=== PATIENT | female | born 1975 | race Caucasian/White ===

== ENCOUNTER → 2020-03-30 17:17 | Outpatient (BNVA) | payer OTHER, SELFPAY | PROVIDERS: PCP Nurse Practitioner Family; Visit Provider Surgery | DX: Z20.828 Contact with and (suspected) exposure to other viral communicable diseases (principal); Z01.812 Encounter for preprocedural laboratory examination | CPT/HCPCS: 87635 ==

== ENCOUNTER → 2020-04-03 15:10 | Outpatient (BNVA) | payer OTHER, SELFPAY | PROVIDERS: PCP Nurse Practitioner Family; Visit Provider Nurse Practitioner Family | DX: S60.211A Contusion of right wrist, initial encounter (principal); W18.2XXA Fall in (into) shower or empty bathtub, initial encounter | CPT/HCPCS: 73110 ==

== ENCOUNTER 2020-04-05 07:28 | Day surgery (SDC) | payer OTHER, SELFPAY ==
[2020-04-03 13:13] VITALS: BMI 34.3
[2020-04-05 07:38] VITALS: BP 169/98; PULSE 69; RESP 18; TEMP 36.1; O2SAT 98
--- NOTE | 2020-04-05 07:51 | ANES.PREANE2 ---
Pre-Anesthetic Assessment Pre-Anesthetic Assessment: Height/Weight: Height 1.63 m Weight 90.718 kg Preop Diagnosis: GERD associated with obesity and screening colonoscopy Proposed Procedure: Operation Date: 04/05/20 08:30 Proposed Procedures p EGD/Colon 56388 K21.9(Not Applicable) - Baltazar Stacy MD s Colonoscopy 17994 Z12.11(Not Applicable) - Baltazar Stacy MD Familial anesthetic complications: takes longer to wake up Was Beta Juanita taken within 24 hours: Yes Last Intake: 01:01 Social: Social History: No alcohol and No tobacco Exam: Pre-Anes Outpt Exam: alert, oriented x 3 and clear to auscultation bilaterally Pulmonary: Pulmonary: None reported CV/HEM: CV/HEM: Arrythmia and HTN : : None reported Hepatic: Hepatic: None reported GI: GI: GERD Metabolic: Metabolic: DM (pre-diabetic ) and Thyroid (removed ) Musc/skel: Musc/skel: RA Neuropsych: Neuropsych: Anxiety Anesthetic Plan: ASA status: 2 Anesthesia: Anesthesia Evaluation and MAC PFSH Anesthesia PFSH: Family History Denies family history of Anesthesia complication Bleeding disorder Social History Smoking and tobacco status: never smoked Alcohol intake: never Adopted: No Caregiver/support person: Yes Lives independently: Yes Household members: spouse Housing: House Marital status: service: No Current occupational status: employed Pets and animals: No History of recent travel: No Sexually active: Yes Current gender identity: Female Jane/Jehovah'S Witness: Alevism Special jane needs: No Data Anesthesia Cardiac Studies: No Data to Display
[2020-04-05] MEDS: sodium chloride 0.9% 1,000 ML 30 ML IV (08:11)
[2020-04-05 08:18] LABS: OR HCG Qualitative Urine Negative (Negative)
--- NOTE | 2020-04-05 08:23 | W.PM.OPSFHP ---
Same Day Surgery H&P Indication for Procedure/HPI DATE OF PROCEDURE: April 05, 2020 CHIEF COMPLAINT/INDICATIONFOR SURGICAL PROCEDURE: Acid reflux and screening colonoscopy PREOP DIAGNOSIS: GERD associated with obesity and screening colonoscopy PLANNED PROCEDRUE: Operation Date: 04/05/20 08:30 Proposed Procedures p EGD/Colon 46811 K21.9(Not Applicable) - Baltazar Stacy MD s Colonoscopy 74726 Z12.11(Not Applicable) - Baltazar Stacy MD Patient comes today and continues to show enthusiasm for weight loss surgery with a current BMI of 35 and weighing 205 pounds. She reports history of GERD/acid reflux and she never had a colonoscopy before. Interim history 04/05/2020 Patient comes today for EGD and colonoscopy ROS All systems have been reviewed negative except as per the above Medications/Allergies* Home Medications Medication Instructions Recorded Confirmed Type amlodipine 5 mg tablet 5 mg PO DAILY 12/30/19 04/05/20 History levothyroxine 175 mcg capsule 175 mcg PO DAILY 12/30/19 04/05/20 History metoprolol tartrate 100 mg tablet 100 mg PO BID 12/30/19 04/05/20 History Allergies/Adverse Reactions Allergy/AdvReac Type Severity Reaction Status Date / Time Penicillins Allergy Severe ALGY-Swell Verified 04/05/20 08:30 Lip/Tongue/Throat Sulfa (Sulfonamide Allergy Severe ALGY-Swell Verified 04/05/20 08:30 Antibiotics) Lip/Tongue/Throat surgical tape Allergy ALGY-Rash Uncoded 04/05/20 08:30 Current Medications: Generic Name Dose Route Start Last Admin Trade Name Freq PRN Reason Stop Dose Admin Sodium Chloride 1,000 mls @ 30 mls/hr 04/05/20 07:45 04/05/20 08:11 Sodium Chloride 0.9% IV 30 mls/hr .Q24H TAHIRA Administration Pertinent History/Comorbid Conditions* Family History (Updated 12/30/19 @ 13:06 by Argelia Tena RN) Denies family history of Anesthesia complication Bleeding disorder Social History Smoking and tobacco status: never smoked Alcohol intake: never Adopted: No Caregiver/support person: Yes Lives independently: Yes Household members: spouse Housing: House Marital status: service: No Current occupational status: employed Pets and animals: No History of recent travel: No Sexually active: Yes Current gender identity: Female Jane/Pentecostal: Buddhist Special jane needs: No Pertinent Exam Findings alert, oriented x 3, clear to auscultation bilaterally, regular rate & rhythm and procedure specific exam findings (Abdominal examination nontender nondistended soft,obese) Recommendations Surgery/Procedure today (EGD and colonoscopy possible biopsy) Coding Level of Care Code Acute Biometrics Experimentalist for Tobin Whitaker
[2020-04-05 09:00] VITALS: BP 86/44; PULSE 66; RESP 16; TEMP 36.1; O2SAT 94
[2020-04-05 09:12] VITALS: BP 105/70; PULSE 63; RESP 18; O2SAT 96
[2020-04-05] MEDS: ondansetron 2 mg/ML SDV 2 mL 4 MG IVP (09:14)
--- NOTE | 2020-04-05 09:35 | ANE.PACU2 ---
Inpatient post-anesthesia follow up: Airway intact: Yes Vital signs: Temperature 97 F Pulse Rate 63 Respiratory Rate 18 Blood Pressure 105/70 Pulse Oximetry 96 Oxygen Delivery Me thod Room Air Oxygen Flow Rate Fraction of Inspir ed Oxygen Hydration adequate: Yes Nausea and vomiting: No Pain level: 1 Mental status: Baseline
== END 2020-04-05 09:39 | disposition home or self-care (01) ==
PROVIDERS: Anesthesiology; PCP Nurse Practitioner Family; Visit Provider Surgery
PROC: 0DJD8ZZ Inspection of Lower Intestinal Tract, Via Natural or Artificial Opening Endoscopic (ICD-10-PCS; CPT 45378; 2020-04-05 08:30)
PROC: 0DJ08ZZ Inspection of Upper Intestinal Tract, Via Natural or Artificial Opening Endoscopic (ICD-10-PCS; CPT 43235; 2020-04-05 08:30)
DX: Z12.11 Encounter for screening for malignant neoplasm of colon (principal); K21.9 Gastro-esophageal reflux disease without esophagitis; K31.7 Polyp of stomach and duodenum; K29.80 Duodenitis without bleeding; I10 Essential (primary) hypertension; E11.9 Type 2 diabetes mellitus without complications; M06.9 Rheumatoid arthritis, unspecified; F41.9 Anxiety disorder, unspecified
CPT/HCPCS: 12345; 43239; 84703; 88305; G0121; J2405; J2704; J3010; J7030

== ENCOUNTER → 2021-01-10 11:11 | Outpatient (BNVA) | payer OTHER, SELFPAY | PROVIDERS: PCP Nurse Practitioner Family; Visit Provider Registered Nurse Neonatal Intensive Care | DX: J02.9 Acute pharyngitis, unspecified (principal); J01.90 Acute sinusitis, unspecified; J32.9 Chronic sinusitis, unspecified | CPT/HCPCS: 87880 ==

== ENCOUNTER → 2021-05-08 14:03 | Outpatient (BNVA) | payer OTHER, SELFPAY | PROVIDERS: PCP Nurse Practitioner Family; Visit Provider Nurse Practitioner Family | DX: Z20.822 Contact with and (suspected) exposure to COVID-19 (principal) | CPT/HCPCS: 87635 ==

== ENCOUNTER 2021-06-01 11:44 | Outpatient (CLI) | payer OTHER, SELFPAY ==
[2021-06-01 13:11] LABS: Basophils # 0.1 10^3/uL (0.0-0.1); Eosinophils # 0.5 10^3/uL (0.0-0.8); Hematocrit 43.6 % (37.0-47.0); Hemoglobin 14.4 g/dL (11.5-15.3); Lymphocytes # 1.9 10^3/uL (0.8-4.8); Lymphocytes % 25.1 %; Mean Corpuscular Hemoglobin 29.1 pg (28.0-34.0); Mean Corpuscular Volume 88.3 fl (81-99); Mean Platelet Volume 9.4 fL (7.4-10.4); Monocytes # 0.6 10^3/uL (0.2-0.9); Monocytes % 7.5 %; Neutrophils # 4.44 10^3/uL (1.8-7.7); Neutrophils % 58.2 %; Nucleated Red Blood Cells % 0 %; Platelet Count 263 10^3/cmm (130-400); Red Blood Count 4.94 10^6/uL (4.1-5.3); White Blood Count 7.6 10^3/uL (4.0-10.0)
[2021-06-01 13:36] LABS: Follicle Stimulating Hormone 8.6 mIU/mL; Prolactin 5.09 ng/mL (4.8-23.3); Thyroid Stimulating Hormone 0.14 uIU/mL (0.27-4.20)
== END 2021-06-01 11:45 | disposition home or self-care (01) ==
PROVIDERS: PCP Nurse Practitioner Family; Visit Provider Obstetrics & Gynecology
DX: N92.0 Excessive and frequent menstruation with regular cycle (principal)
CPT/HCPCS: 36415; 81000; 83001; 84146; 84443; 84702; 85025; 87624

== ENCOUNTER → 2021-06-05 10:43 | Outpatient (BNVA) | payer OTHER, SELFPAY | PROVIDERS: PCP Nurse Practitioner Family; Visit Provider Obstetrics & Gynecology | DX: R10.2 Pelvic and perineal pain (principal) | CPT/HCPCS: 76830 ==

== ENCOUNTER 2021-09-13 14:54 | Outpatient (CLI) | payer OTHER, SELFPAY ==
--- NOTE | 2021-09-13 15:00 | MM_ITS ---
WS: [id number] BILATERAL 3D TOMOSYNTHESIS DIGITAL SCREENING MAMMOGRAPHY WITH CAD CLINICAL INFORMATION: SCREENING HISTORY: Screening mammogram. No current complaints. COMPARISON: 015 TECHNIQUE: Bilateral CC and MLO views. FINDINGS: Scattered fibroglandular densities bilaterally. 8mm ovoid asymmetric density along the posterior nipp le line central LEFT breast appears more prominent compared to previous. Recommend spot compression v iews and ultrasound for further evaluation. RIGHT breast is unremarkable and unchanged. MM/[place] [id number] IMPRESSION: BI-RADS: 0-Incomplete: Need additional imaging evaluation FOLLOW UP: Need Additional Imaging Recommend LEFT breast diagnostic mammography and ultrasound in further evaluati on.
== END 2021-09-13 14:55 | disposition home or self-care (01) ==
PROVIDERS: PCP Nurse Practitioner Family; Visit Provider Physician Assistant
DX: Z12.31 Encounter for screening mammogram for malignant neoplasm of breast (principal)
CPT/HCPCS: 77063; 77067

== ENCOUNTER 2021-09-25 09:22 | Outpatient (CLI) | payer OTHER, SELFPAY ==
[2021-09-25 11:21] LABS: Thyroid Stimulating Hormone 1.85 uIU/mL (0.27-4.20)
[2021-09-25 11:55] LABS: Estmated Average Glucose 146; Hemoglobin A1C 6.7 % (4.0-6.0)
[2021-09-27 00:43] LABS: T3 Total 97 ng/dL (76-181)
[2021-10-02 17:17] LABS: TSH Receptor Binding Antibody 1.15 IU/L (< OR = 2.00)
== END 2021-09-25 09:23 | disposition home or self-care (01) ==
LOC: LAB 09:28
PROVIDERS: PCP Nurse Practitioner Family; Visit Provider Internal Medicine
DX: E03.9 Hypothyroidism, unspecified (principal); R73.03 Prediabetes
CPT/HCPCS: 36415; 83036; 83516; 84439; 84443; 84480

== ENCOUNTER 2021-10-19 14:32 | Outpatient (CLI) | payer OTHER, SELFPAY ==
--- NOTE | 2021-10-19 14:45 | MM_ITS ---
WS: [id number] ADDITIONAL VIEWS LEFT MAMMOGRAM WITH DIGITAL BREAST TOMOSYNTHESIS. HISTORY: ABNORMAL MAMMO COMPARISON: 09/13/2021, 01/09/2015 Spot compression views LEFT breast in CC, MLO projections and true ML submitted with digital breast t omosynthesis and SM. The linear asymmetries in the central and lateral LEFT breast resolves with additional imaging. No galeana spicious masses or distortion remain. No ultrasound necessary. MM/[place] [id number] IMPRESSION: BI-RADS: 2-Benign FOLLOW UP: 1 Year Follow-up
== END 2021-10-19 14:33 | disposition home or self-care (01) ==
PROVIDERS: PCP Physician Assistant; Visit Provider Physician Assistant
DX: R92.8 Other abnormal and inconclusive findings on diagnostic imaging of breast (principal); N92.1 Excessive and frequent menstruation with irregular cycle; N39.3 Stress incontinence (female) (male)
CPT/HCPCS: 77061; 80053; 81000; 81025; 85025; 86850; 86900

== ENCOUNTER 2021-10-24 14:31 | Observation (INO) | payer OTHER, SELFPAY ==
[2021-10-19 11:56] VITALS: BMI 35.2
--- NOTE | 2021-10-19 12:43 | P.ANESASSM_ITS ---
Pre-Anesthetic Assessment Height/Weight: Height 1.63 m Weight 92.986 kg Preop Diagnosis: Menorrhagia, dysmenorrhea, cystocele stage II, stress urinary incontinence Operation Date: 10/24/21 10:30 Proposed Procedures p Total vaginal hysterectomy, bilateral salpingo-oophorectomy 40805,N39.3/Anterior colporrhapy 24518, and single incision sling 78560(Not Applicable) - Mandeep Mckay MD s Colporrhaphy Anterior(Not Applicable) - Mandeep Mckay MD s Sling Single Incision Sling(Not Applicable) - Mandeep Mckay MD Familial anesthetic complications: none Social No alcohol and No tobacco Exam alert, oriented x 3, clear to auscultation bilaterally and regular rate & rhythm Airway Mallampati: Class II Dentition: other (missing) Pulmonary None reported CV/HEM Hypertension None reported Hepatic None reported GI Gastroesophageal Reflux Disease Patient has NOT had gastrectomy Metabolic Diabetes Mellitus and Thy[place] [facility] [place] Scoliosis Neuropsych None reported Anesthetic Plan ASA status: 3 Anesthesia: General Risk of > 500 ml blood loss (7ml/kg in children): No Medications/Allergies Home Medications Medication Instructions Recorded Confirmed Last Taken Type metoprolol tartrate 100 mg tablet 100 mg PO BID 12/30/19 10/19/21 04/05/20 History semaglutide (Ozempic) 0.25 mg (0.2 mL) SUBCUT .weekly 09/27/21 10/19/21 Unknown Rx #1.5 ml semaglutide (Ozempic) 0.5 mg (0.4 mL) SUBCUT .weekly #6 09/27/21 10/19/21 Unknown Rx ml levothyroxine 175 mcg tablet 175 mcg PO EVERY OTHER DAY 10/19/21 10/19/21 Unknown History metformin 500 mg tablet,extended 500 mg PO BID 10/19/21 10/19/21 Unknown History release 24 hr Allergies Allergy/AdvReac Type Severity Reaction Status Date / Time Penicillins Allergy Severe ALGY-Swell Verified 10/19/21 10:18 Lip/Tongue/Throat Sulfa (Sulfonamide Allergy Severe ALGY-Swell Verified 10/19/21 10:18 Antibiotics) Lip/Tongue/Throat surgical tape Allergy ALGY-Rash Uncoded 09/27/21 13:53 [facility] Anesthesia Medical History Gastritis and duodenitis GERD (gastroesophageal reflux disease) Hypertension Obesity Type 2 diabetes mellitus Surgical History H/O section x1 History of oral surgery History of thyroidectomy, total Hx of abdominoplasty Family History Mother Hypertension Grandmother Diabetes maternal Daughter Uterine cancer, Onset Age: 26 Denies family history of Colon cancer Ovarian cancer Clotting disorder Heart disease Hyperlipidemia Breast cancer Anesthesia complication Bleeding disorder Thyroid condition Stroke Social History Smoking and tobacco status: never smoked Data Anesthesia Cardiac Studies: No Data to Display
[2021-10-24] VITALS (20 sets, daily range): BP systolic 109–203; BP diastolic 58–98; PULSE 56–76; RESP 15–18; TEMP 36.1–36.9; O2SAT 88–100; BMI 35.2
[2021-10-24] MEDS: sodium chloride 0.9% 1,000 ML 30 ML IV (09:53)
[2021-10-24] MEDS: scopolamine 1.5 Patch 1 PATCH TRANSDERMA (09:53)
--- NOTE | 2021-10-24 10:27 | P.ANESUD_ITS ---
Pre-Anesthetic Update Pre-Anesthetic Assessment: Date of Surgery/Procedure: 10/24/21 Preop Marita gnosis: Menorrhagia, dysmenorrhea, cystocele stage II, stress urinary incontinence Proposed Procedure: Operation Date: 10/24/21 10:30 Proposed Procedures p Total vaginal hysterectomy, bilateral salpingo-oophorectomy 01000,N39.3/Anterior colporrhapy 76042, and single incision sling 54963(Not Applicable) - Mandeep Mckay MD s Colporrhaphy Anterior(Not Applicable) - Mandeep Mckay MD s Sling Single Incision Sling(Not Applicable) - Mandeep Mckay MD Any changes to Pre-Anesthetic Assessment?: No Last Intake: Intake Last Liquid Date 10/23/21 Last Liquid Time 18:00 Last Solid Date 10/23/21 Last Solid Time 18:00 Vitals: Temperature 97.9 F 10/24/21 09:45 Pulse Rate 59 L 10/24/21 09:45 Respiratory Rate 18 10/24/21 09:45 Blood Pressure 203/98 10/24/21 09:45 Blood Pressure Rekha n 133 10/24/21 09:45 Pulse Oximetry 98 10/24/21 09:45 Oxygen Delivery Me thod 10/24/21 09:47 Exam: Pre-Anes Outpt Exam: alert, oriented x 3, clear to auscultation bilaterally and regular rate & rhythm Cardiac Studies: No Data to Display
--- NOTE | 2021-10-24 11:44 | W.PM.OPSUD ---
Surgery/Procedure H&P Update DATE OF PROCEDURE: October 24, 2021 DATE H&P PERFORMED: 10/19/21 H&P UPDATE INFORMATION: I have reviewed H&P completed within last 30 days, I have examined patient prior to procedure and No changes to prior documentation PREOP DIAGNOSIS: Menorrhagia, dysmenorrhea, cystocele stage II, stress urinary incontinence PLANNED PROCEDURE: Operation Date: 10/24/21 10:30 Proposed Procedures p Total vaginal hysterectomy, bilateral salpingo-oophorectomy 15922,N39.3/Anterior colporrhapy 74488, and single incision sling 61142(Not Applicable) - Mandeep Mckay MD s Colporrhaphy Anterior(Not Applicable) - Mandeep Mckay MD s Sling Single Incision Sling(Not Applicable) - Mandeep Mckay MD
[2021-10-24] MEDS: vancomycin 1,000 MG in sodium chloride 0.9% 250 ML 250 MG IV (11:50)
[2021-10-24] MEDS: levofloxacin-dextrose 5 % 500 MG/100 ML PREMIX 100 MG IV (12:20)
--- NOTE | 2021-10-24 12:51 | SUR.OPER ---
attempted to contact notify him of surgical start.
--- NOTE | 2021-10-24 14:23 | PM.OP ---
Operative Report Date of procedure: October 24, 2021 Pre-op diagnosis: Preop Diagnosis Menorrhagia, dysmenorrhea, cystocele stage II, stress urinary incontinence Post-op diagnosis: Same as above Procedure done: Total vaginal hysterectomy with bilateral salpingo-oophorectomy. Single incision mid urethral sling. Anterior colporrhaphy augmented with allograft. Cystoscopy Implants: Coloplast Altis single incision sling Specimens removed/disposition: Uterus, left and right fallopian tube and ovaries Surgeon: Mandeep Mckay MD Estimated blood loss (mL): 400 IV fluids (mL): 1,500 Urine output (mL): 200 Complications: None Findings: Enlarged uterus Procedure: After informed consent and risks, benefits, indications and alternatives reviewed with the patient was taken to the operating room. The patient was placed in dorsal lithotomy position prepped, and draped in the usual sterile fashion. The pre-procedure timeout verifying the correct patient, procedure, site and side, could not requirements was performed and acknowledge by the OR team. A Rhodes catheter was placed. A Bookwalter vaginal retractor was placed into the vagina in usual manner visualize the cervix. Cervix was grasped with a single tooth tenaculum and circumferentially infiltrated with 2% lidocaine with epinephrine. Then cervix was circumferentially incised with bovie and the bladder was dissected off the pubovesical cervical fascia anteriorly with a sponge stick and Metzenbaum scissors. The anterior peritoneal reflection was identified and the anterior cul-de-sac was entered sharply with Metzenbaum scissors. The same procedure was performed posteriorly and a posterior colpotomy was made through the posterior cul-de-sac space without difficulty and the posterior blade of the Bookwalter vaginal retractor was advanced posteriorly into the cul-de-sac. At this time, the left and right uterosacral ligaments were isolated and ligated with 0 Vicryl. The Enseal device was placed over the uterosacral ligaments on either side and was then used in a serial fashion up through the cardinal ligaments bilaterally cross-clamped, cut, and sealed with the Enseal device. Finally, the uterine arteries were cross-clamped, cut, sealed and ligated with the Enseal device. Hemostasis was assured. The broad ligaments were then serially clamped, sealed and cut with the Enseal device on both sides. Excellent hemostasis was visualized. Both cornua were clamped, sealed and cut with the Enseal device. Then the pedicles were then suture ligated with excellent hemostasis. The uterus was excised and submitted for pathologic evaluation. No other abnormalities were noted in the pelvic cavity. Then the right side Infundibular ligament was identified. The ureter was confirmed along the pelvic side wall and peristalsis was noted. The Enseal device was then used to clamp, sealed and transcepted at middistance, again being sure to be clear of the ureter and the fallopian tube and ovary were removed. The same process was then repeated on the left side. Good hemostasis was assure on both sides. The peritoneum was then closed in a pursestring fashion with 0 Vicryl suture. The vaginal cuff angles were closed with [id number] #0 Vicryl suture on both sides and transfixed with the ipsilateral cardinal and uterosacral ligaments. The remainder of the vaginal cuff was closed with #0 Vicryl in a running locked fashion. At this time, instruments were removed from the vagina at hemostasis assured. Then proceeded to perform single incision sling. The anterior vaginal mucosa beneath the midurethra was infiltrated with 0.5% Marcaine with epinephrine. A vertical midline incision was made beneath the midurethra, nearly 1.5 cm length. Careful submucosal dissection was performed bilaterally up to the interior portion of the inferior pubic ramus. The insertion of adductor longus tendon on the patient?s pubic ramus was identified as reference land rl. Palpated the notch along the internal edge of ischiopubic ramus where the adductor longus tendon and the inferior pubic ramus meet. The Altis single incision sling (SIS) was selected. Then the needle of the SIS inserted aiming at the location of this notch. One of the integrated self-fixating tips place onto the needle by sliding it over the end of the needle. The needle/sling assembly was inserted toward the location of identified reference notch making sure that the flat of the handle is perpendicular to the desired path. The needle was tracked along the posterior surface of the ischiopubic ramus until the midline rl on the mesh is approximately at the midline position under the urethra. The needle was removed and the same was repeated on the contralateral side until the appropriate sling tension under the urethra was achieved ensuring that the mesh lays flat. The needle was removed and vaginal incision was closed in a running interlocking fashion with 2-0 Vicryl. Then proceeded to perform the anterior colporrhaphy. The vaginal mucosa was then injected in the midline with normal saline. The vaginal mucosa was scored in the midline with the Bovie approximately 1 cm medial to the urethral meatus to 1 cm distal to the vaginal cuff. This vaginal mucosa was then undermined and then incised in the midline with the Metzenbaum scissors. The lateral aspects of the vaginal mucosa were then grasped with the Allis clamps and the vaginal mucosa was then dissected off the underlying fascia with the Metzenbaum scissors. Again, there was noted to be quite a bit of oozing at the incision, which was controlled with cautery. After adequate dissection was performed, bilaterally. The Coloplast allograft was modified at time of application to fit spacea, 3 x 2 cm piece . The Coloplast allograft was placed in front of cystocele facing the vagina mucosa. Suture is placed at the 4 corners with 3-O PDS and distal ends of graft and placed towards vaginal cuff. Final suture is placed on proximal portion of the graft to complete the placement overlying the bladder. Then Interrupted vertical mattress sutures of 0 Vicryl were used to elevate the cystocele superiorly. The excessive vaginal mucosa was then trimmed with the Metzenbaum scissors and the vaginal mucosa was then reapproximated in the running interlocking fashion with 2-0 Vicryl. Then the Rhodes catheter was removed and cystoscope was inserted. The bladder was filled with sterile water. Complete evaluation of the bladder mucosa was performed noting no lacerations, dimpling, tears, bleeding of the mucosa or muscular layers. Both ureteral orifices were identified. Prompt excretion of urine from both ureteral orifices was noted. Cystoscope was withdrawn. Rhodes catheter was then placed yielding clear gillian urine. A vaginal packing with Premarin cream was placed and the patient was taken out of dorsal lithotomy position and awakened from the general anesthesia. The patient tolerated the procedure well and was taken to the PACU recovery room in a stable condition. Sponge, lap, needle and instruments counts were correct x3.
--- NOTE | 2021-10-24 16:35 | ANE.PACU2 ---
Inpatient post-anesthesia follow up: Airway intact: Yes Vital signs: Temperature 97.0 F Pulse Rate 65 Respiratory Rate 15 Blood Pressure 138/82 Pulse Oximetry 92 Oxygen Delivery Me thod Room Air Oxygen Flow Rate 8 Fraction of Inspir ed Oxygen Hydration adequate: Yes Nausea and vomiting: No Pain level: 3 Mental status: Baseline
[2021-10-24] MEDS: dextrose 5%-lactated ringers 1,000 ML 125 ML IV (18:11)
--- NOTE | 2021-10-24 18:28 | PC.NURSE ---
1530 RECEIVED PATIENT TO OB ON ROOM AIR AND O2 SAT WAS 88%, PLACED O2 ON AT 2 LITERS PER NASAL CANNELA.
[2021-10-24] MEDS: ketorolac 30 mg/mL INJ IVP (21:21)
[2021-10-25] MEDS: dextrose 5%-lactated ringers 1,000 ML 125 ML IV (01:48)
[2021-10-25] MEDS: ketorolac 30 mg/mL INJ IVP (03:24)
[2021-10-25 05:30] VITALS: BP 154/72; PULSE 61; TEMP 36.8; O2SAT 94
[2021-10-25 06:47] LABS: Hematocrit 34.5 % (37.0-47.0); Hemoglobin 11.6 g/dL (11.5-15.3); Mean Corpuscular HGB Conc 33.6 g/dL (30.0-36.0); Mean Corpuscular Volume 86.3 fl (81-99); Mean Platelet Volume 9.9 fL (7.4-10.4); Platelet Count 267 10^3/cmm (130-400); Red Cell Distribution Width 14.2 % (12.1-15.1)
[2021-10-25 07:30] VITALS: BP 129/65; PULSE 58; RESP 18; TEMP 36.6; O2SAT 96
--- NOTE | 2021-10-25 09:41 | P.DS_ITS ---
Discharge Providers CLIP BAKER Date of Admission: 10/24/21 14:31 Date of Discharge: 10/25/21 Attending Provider at Admission: Mandeep Mckay MD Attending Provider at Discharge: Mandeep Mckay MD Primary Care Provider: Kandy Gonzalez Hospital Course Hospital Course Mrs. Brock admitted for planned total vaginal hysterectomy with bilateral salpingo-oophorectomy, anterior colporrhaphy augmented with allograft and single incision mid urethral sling. The procedures were performed without complications. Overnight observation uneventful. She is afebrile and hemodynamically stable postoperative day 1. PVR within normal limits. Tolerating diet well. Ambulating without difficulty. Physical Exam Narrative: GA: Alert and oriented ?3. HEENT: WNL. Heart: Regular rate and rhythm. Lungs: Clear to auscultation bilaterally. Abdomen: Bowel sounds present, nontender. MANUFACTURING ENGINEERING TECHNICIAN: Scant spotting bleeding. Extremities: No edema, no cyanosis, no calves pain. Urinary Catheter Management: Rhodes: Cath Placed During This Visit: yes, but has since been removed by the nurse Reason for Continuing Indwelling Catheter: Decision to DC Catheter Urinary Catheter Date of Insertion: 10/24/21 Urinary Catheter Time of Insertion: 12:53 Date Urinary Catheter Removed: 10/25/21 Time Urinary Catheter Discontinued: 05:25 History History History 6 Term 2 Miscarriages/Ectopic 3 1 Living Children 3 Discharge Data Studies Completed and Pending Pending at discharge Category Date Time Status ES surgery / GI images Routine Exams 10/24/21 12:00 Taken Pathology: Surgical [PTH] Routine Pth 10/24/21 14:49 Received Laboratory Results WBC 10.0 10^3/uL (4.0-10.0) 10/25/21 06:24 RBC 4.00 10^6/uL (4.1-5.3) L 10/25/21 06:24 Hgb 11.6 g/dL (11.5-15.3) 10/25/21 06:24 Hct 34.5 % (37.0-47.0) L 10/25/21 06:24 MCV 86.3 fl (81-99) 10/25/21 06:24 MCH 29.0 pg (28.0-34.0) 10/25/21 06:24 MCHC 33.6 g/dL (30.0-36.0) 10/25/21 06:24 RDW 14.2 % (12.1-15.1) 10/25/21 06:24 Plt Count 267 10^3/cmm (130-400) 10/25/21 06:24 MPV 9.9 fL (7.4-10.4) 10/25/21 06:24 Vitals Last Vital Signs Temp 98.3 F 10/25/21 05:30 Pulse 61 10/25/21 05:30 Resp 17 10/24/21 19:00 BP 154/72 10/25/21 05:30 Pulse Ox 94 10/25/21 05:30 Discharge Plan Discharge Patient Disposition: Home Condition: Stable Prescriptions: New hydrocodone-acetaminophen 5-325 mg tablet 1 tab PO Q4H PRN (Reason: pain) Qty: 20 0RF ibuprofen 800 mg tablet 800 mg PO TID PRN (Reason: pain) Qty: 60 0RF acetaminophen 325 mg capsule 325 mg PO Q4H PRN (Reason: fever or pain) Qty: 60 0RF Continued metoprolol tartrate 100 mg tablet 100 mg PO BID 0RF metformin 500 mg tablet extended release 24 hr 500 mg PO BID 0RF Ozempic 0.25 mg or 0.5 mg(2 mg/1.5 mL) pen injector 0.25 mg SUBCUT .weekly Qty: 1.5 0RF Rx Instructions: Inject 0.25 mg subcut once a week for a month then increase. Ozempic 0.25 mg or 0.5 mg(2 mg/1.5 mL) pen injector 0.5 mg SUBCUT .weekly Qty: 6 3RF Rx Instructions: Inject 0.5 mg subcut once a week and continue. levothyroxine 175 mcg Tablet 175 mcg PO EVERY OTHER DAY 0RF Discharge Orders: Discharge Order (Routine); Ordered 10/25/21 Ordered By: Mandeep Mckay Referrals: Mandeep Mckay MD [Physician] - 2 weeks Discharge Diet: Usual diet Discharge Activity: Limit activity as instructed Patient Instructions: Cystoscopy (GEN), Vaginal Hysterectomy (GEN), Anterior Vaginal Repair (GEN), OB Discharge Report, OB Food/Drug Interaction Guide, Opioid Safety, Bladder Sling for Women (GEN) Activity Restrictions/Additional Instructions: 1. Please call [facility] on next working day to make your post-operative appointment in 2 weeks. 2. Please stay home until you come back to the clinic on first post-operative check up. 3. Please follow instructions on your medications CAREFULLY. 4. If you have abdominal incision, do not cover it unless dressing is necessary because of drainage. OK to shower, but avoid bath. Leave steri-strips until they fall off. If they are still on one week after surgery, you may remove them. 5. If you had vaginal surgery or vaginal repair, Dr. Mckay may instruct you to take SITZ bath. 6. Yellow, blood tinged odorous vaginal discharge is usually normal after hysterectomy or vaginal surgeries. 7. No sexual intercourse, tampons, or douches until you are completely released from the post-operative care. 8. Avoid constipation by eating right and maybe using some Metamucil or Milk of Magnesia. 9. All prescription refills are given during the working hours. Please do no wait till it runs out. Call the clinic at [phone] before your medication runs out. The clinic will get in touch with your doctor to prescribe medications if necessary. 10. Please remain within 40 mile radius from our hospital because emergencies do happen now and then during the post-operative period. 11. If you have stairs at home, take one step at a time slowly and minimize the number of trips. It helps to stay in one floor for the next few days. No lifting except what you can lift by one hand until you are released from the post-operative care. 12. Driving is discouraged until you are well healed. It may be 3-4 weeks before you feel strong enough to drive. You should be able to turn and look through the rear window without pain and you should be able to push the brake pedal very hard without pain before you drive. No fast rules, but SAFETY should be your primary concern. DO NOT drive if you are on sedating medications such as narcotics. 13. Call the clinic (during working hours) to make urgent appointment or go to the Emergency room, if any of the following occurs: i. Vaginal bleeding becomes heavy, more than a period. ii. Incision becomes red and sore, or drains pus. iii. Your temperature is over 100.4 or you have chill. iv. IV site becomes red and swollen (a little ``knot?? is usually OK) v. Persistent nausea and vomiting vi. Persistent constipation or diarrhea vii. Rash or allergic reaction to medications. Discharge Attestations CLIP BAKER Time Spent in Discharge Care*: greater than 30 min Coding Level of Care Code Acute Tie Mill Operator for Tobin Whitaker
[2021-10-25 10:40] VITALS: BP 121/75; PULSE 64; RESP 18; O2SAT 97
== END 2021-10-25 10:50 | disposition home or self-care (01) ==
LOC: OBGYN 14:32
PROVIDERS: Admitting Provider Obstetrics & Gynecology; PCP Physician Assistant; Visit Provider Obstetrics & Gynecology
PROC: (CPT 57240; principal; 2021-10-24 10:20)
PROC: 0JQC0ZZ Repair Pelvic Region Subcutaneous Tissue and Fascia, Open Approach (ICD-10-PCS; CPT 57240; 2021-10-24 10:20)
PROC: (CPT 57288; 2021-10-24 10:20)
PROC: 0TJB8ZZ Inspection of Bladder, Via Natural or Artificial Opening Endoscopic (ICD-10-PCS; CPT 52000; 2021-10-24 10:20)
DX: N92.0 Excessive and frequent menstruation with regular cycle (principal); N94.6 Dysmenorrhea, unspecified; N81.10 Cystocele, unspecified; N39.3 Stress incontinence (female) (male); I10 Essential (primary) hypertension; K21.9 Gastro-esophageal reflux disease without esophagitis; E11.9 Type 2 diabetes mellitus without complications; E66.9 Obesity, unspecified; Z68.35 Body mass index [BMI] 35.0-35.9, adult
CPT/HCPCS: 57240; 57288; 58262; 36415; 51798; 85027; 88307; C1713; C1762; G0378; J1100; J1170; J1200; J1885; J1956; J2250; J2405; J3010; J3370; J3490; J7030; J7050; Q9968

== ENCOUNTER → 2022-01-18 10:55 | Outpatient (BNVA) | payer OTHER, SELFPAY | PROVIDERS: PCP Physician Assistant; Visit Provider Obstetrics & Gynecology | DX: E11.9 Type 2 diabetes mellitus without complications (principal) | CPT/HCPCS: 83036 ==

== ENCOUNTER 2022-02-04 15:44 | Outpatient (CLI) | payer OTHER, SELFPAY ==
[2022-02-04 16:26] LABS: Estmated Average Glucose 160; Hemoglobin A1C 7.2 % (4.0-6.0)
[2022-02-04 16:52] LABS: Chol HDL Ratio 5.82 mg/dL (0.0-4.40); Cholesterol 198 mg/dL (0-200); Free T4 Free Thyroxine 1.16 ng/dL (0.82-1.77); HDL Cholesterol 34 mg/dL (60-100); Thyroid Stimulating Hormone 1.27 uIU/mL (0.27-4.20); Triglycerides 610 mg/dL (0-150)
[2022-02-04 17:45] LABS: LDL Cholesterol Direct 86 mg/dL (0-100)
[2022-02-05 16:28] LABS: CENTROMERE B ANTIBODY <1.0 NEG AI (<1.0 NEG); JO-1 ANTIBODY <1.0 NEG AI (<1.0 NEG); RNP ANTIBODY <1.0 NEG AI (<1.0 NEG); SCL-70 ANTIBODY <1.0 NEG AI (<1.0 NEG); SJOGREN'S ANTIBODY (SS-A) <1.0 NEG AI (<1.0 NEG); SM ANTIBODY <1.0 NEG AI (<1.0 NEG); SS-B <1.0 NEG AI (<1.0 NEG)
[2022-02-06 11:48] LABS: COMPLEMENT COMPONENT C3C 163 mg/dL (83-193); COMPLEMENT COMPONENT C4C 19 mg/dL (15-57)
[2022-02-06 13:17] LABS: COMPLEMENT, TOTAL (CH50) 55 U/mL (31-60)
[2022-02-06 14:23] LABS: ANA SCREEN, IFA NEGATIVE (NEGATIVE)
[2022-02-06 16:34] LABS: THYROID PEROXIDASE ANTIBODIES 2 IU/mL (<9)
[2022-02-07 15:23] LABS: DNA AB (DS) CRITHIDIA,IFA NEGATIVE (NEGATIVE)
== END 2022-02-04 15:45 | disposition home or self-care (01) ==
LOC: LAB 15:46
PROVIDERS: Internal Medicine; PCP Physician Assistant; Visit Provider Dermatology
DX: L80 Vitiligo (principal); L90.0 Lichen sclerosus et atrophicus; M25.50 Pain in unspecified joint; E03.9 Hypothyroidism, unspecified; E11.9 Type 2 diabetes mellitus without complications
CPT/HCPCS: 80061; 83036; 83721; 84439; 84443; 86160; 86162; 86235; 86255; 86376

== ENCOUNTER → 2022-05-25 15:52 | Outpatient (BNVA) | payer OTHER, SELFPAY | PROVIDERS: PCP Physician Assistant; Visit Provider Nurse Practitioner Family | DX: J02.9 Acute pharyngitis, unspecified (principal); R50.9 Fever, unspecified | CPT/HCPCS: 87400; 87880 ==

== ENCOUNTER 2022-10-01 10:46 | Outpatient (CLI) | payer OTHER, SELFPAY ==
--- NOTE | 2022-10-01 | ECG_ITS ---
[facility] Test Date: 2022-10-01 Pat Name: Adrien Brock Department: Room: Gender: Female Paralegal Legal Secretary: Betty Mata : 1975 Requested By: Kandy De Oliveira Order Number: [id number] Cristóbal MD: Drew Hernandez M.D. Interpretive Statements NAME OF STUDY: TREADMILL STRESS TEST INDICATION: [Atypical Chest Pain] EXERCISE DATA: The patient was exercised by Yared protocol. Baseline heart rate was 79 beats per minute. Baseline blood pressure was 137/78 millimeters of mercury. Target heart rate was 145 beats per minute. Maximum heart rate achieved was 167 which was 115% of the target heart rate. Maximum blood pressure was 246/117 millimeters of mercury. Total exercise time was 4 minutes 29 seconds. Maximum METs achieved was 7. The reason for ending the test was maximal effort was achieved. The patient complained of shortness of breath during the stress test, which then resolved at the end of the test. ELECTROCARDIOGRAM: BASELINE: Showed sinus rhythm, normal axis, no significant ST-T changes at the baseline noted. [] EXERCISE: At the peak exercise level, [] boderline 1-[address] depressions seen in inferior leads and borderline ST elevation seen in aVR. RECOVERY: During the recovery period, heart rate dropped appropriately. No significant ST-T changes in the recovery suggestive of ischemia noted. [] CONCLUSION: 1. Exercise capacity fair. 2. Heart rate response was appropriate 3. Blood pressure response was hypertensive 4. Symptoms not suggestive of ischemia. 5. Stress test is suggestive of ischemia. Electronically Signed On 10-11-2022 14:51:59 CDT by Drew Hernandez M.D. [id number]
--- NOTE | 2022-10-01 10:59 | USCV_ITS ---
Adrien Brock Age: 47 Gender: F : 1975 Exam Date: 10/01/2022 11:32 Ordering Phys: Kandy Gonzalez Technologist: JARAD [place] [facility] [place]ication: ATYPICAL CHEST PAIN, HIGH BP BP: 148 / 90 HR: 65 Rhythm: Sinus Technical Quality: Technically difficult study MEASUREMENTS (Male / Female) Normal Values 2D ECHO LVOT Diameter 2.0 cm LV Ejection Fraction MOD 2C 63.1 % LV Ejection Fraction 2C AL 65.3 % LA Diameter 3.2 cm LA Width 4.0 cm LA Height 5.2 cm RA Width 3.4 cm RA Height 4.2 cm Aorta at Sinotubular Diameter 2.4 cm IVC Diameter 1.5 cm M-MODE Aortic Annulus Diameter 2.9 cm LA Ao Ratio MM 1.1 MV E Point Septal Separation 0.7 cm DOPPLER AV Peak Velocity 152.0 cm/s LVOT Peak Velocity 91.0 cm/s AV Area Cont Eq vti 2.1 cm squared AV Area Cont Eq pk 1.9 cm squared MV Peak Velocity 110.0 cm/s MV Area PHT 2.4 cm squared Mitral E to A Ratio 0.8 MV E' Velocity 79.0 cm/s Mitral E to LV E' Septal Ratio 12.9 TR Peak Velocity 185.7 cm/s TR Peak Gradient 13.8 mmHg TR Mean Velocity 146.5 cm/s TR Mean Gradient 9.2 mmHg TR Velocity Time Integral 56.8 cm TV Peak E Velocity 52.0 cm/s Right Atrial Pressure 3.0 mmHg Pulmonary Artery Systolic Pressu 16.8 mmHg PV Peak Velocity 146.0 cm/s RV Acceleration Time 0.1 s RV Ejection Time 0.3 s RV AcT/ET 0.3 FINDINGS Left Ventricle Left ventricle is normal in size. LV systolic function normal LVEF of 60 to 65%. No regional wall motion abnormalities are seen. Grade 1 diastolic dysfunction Right Ventricle Normal in size and function Right Atrium Normal in size Left Atrium Normal in size Mitral Valve Structurally normal mitral valve. Trace mitral regurgitation. Aortic Valve Structurally normal aortic valve. No significant stenosis or regurgitation seen. Tricuspid Valve Trace tricuspid regurgitation. Insufficient TR jet to calculate RVSP. Pulmonic Valve Not well-visualized. Mild to moderate pulmonic regurgitation. Pericardium Normal Aorta Normal in size IVC Appears to be normal CONCLUSIONS LV systolic function is normal with EF of 60-65% Grade 1 diastolic dysfunction Trace mitral regurgitation Trace tricuspid regurgitation Mild to moderate pulmonic regurgitation No comparison studies are available Drew Hernandez MD (Electronically Signed) Final Date: 12 October 2022 13:26 S
[2022-10-01 12:20] VITALS: BMI 34.3
[2022-10-01 13:00] VITALS: BP 153/96; PULSE 95
== END 2022-10-01 10:47 | disposition home or self-care (01) ==
LOC: CDL 10:47
PROVIDERS: PCP Physician Assistant; Visit Provider Physician Assistant
DX: R07.89 Other chest pain (principal)
CPT/HCPCS: 93017; 93306

== ENCOUNTER 2022-11-14 15:06 | Outpatient (CLI) | payer OTHER, SELFPAY ==
--- NOTE | 2022-11-14 15:11 | MM_ITS ---
WS: [id number] BILATERAL SCREENING DIGITAL TOMOSYNTHESIS MAMMOGRAM WITH CAD HISTORY: SCREENING COMPARISON: 10/19/2021, 09/13/2021 and 01/03/2015 Bilateral CC and MLO views with tomosynthesis and synthetic mammography submitted. Computer aided det ection analyzed. Breast composition: There are scattered areas of fibroglandular density. No suspicious masses, microc alcifications or architectural distortion. Benign calcifications. MM/[place] [id number] IMPRESSION: BI-RADS: 2-Benign FOLLOW UP: 1 Year Follow-up
== END 2022-11-14 15:07 | disposition home or self-care (01) ==
LOC: RAD 15:07 → MOBLMAM 15:10
PROVIDERS: PCP Physician Assistant; Visit Provider Physician Assistant
DX: Z12.31 Encounter for screening mammogram for malignant neoplasm of breast (principal)
CPT/HCPCS: 77063; 77067

== ENCOUNTER 2022-12-05 12:20 | Outpatient (CLI) | payer OTHER, SELFPAY ==
[2022-12-05 13:04] VITALS: BMI 32.4
--- NOTE | 2022-12-05 13:05 | ECG_ITS ---
[facility] Test Date: 2022-12-05 Pat Name: Adrien Brock Department: Room: Gender: Female Computer Network Specialist: Beverly Alegre : 1975 Requested By: Danial Glez Order Number: [id number] Cristóbal MD: Drew Hernandez M.D. Interpretive Statements NAME OF STUDY: TREADMILL STRESS ECHOCARDIOGRAM INDICATION: [Chest Pain] EXERCISE DATA: The patient was exercised by Yared protocol. Baseline heart rate was 108 beats per minute. Baseline blood pressure was 151/100 millimeters of mercury. Target heart rate was 145 beats per minute. Maximum heart rate achieved was 160 which was 110% of the target heart rate. Maximum blood pressure was 217/111 millimeters of mercury. Total exercise time was 4 minutes 30 seconds. Maximum METs achieved was 7. The reason for ending the test was maximal effort achieved. The patient complained of shortness of breath during the stress test, which then resolved at the end of the test. ELECTROCARDIOGRAM: BASELINE: Showed sinus rhythm, normal axis, incomplete right bundle branch block. [] EXERCISE: At the peak exercise level, [] No significant ST-T changes suggestive of ischemia noted. [] RECOVERY: During the recovery period, heart rate dropped appropriately. No significant ST-T changes in the recovery suggestive of ischemia noted. [] CONCLUSION: 1. Exercise capacity is fair 2. Heart rate response was appropriate 3. Blood pressure response was hypertensive 4. Symptoms not suggestive of ischemia. 5. Electrocardiogram portion of the stress test was not suggestive of ischemia. 6. ECHO stress portion will be reported separately Electronically Signed On 12-25-2022 14:41:10 CDT by Drew Hernandez M.D. [id number]
--- NOTE | 2022-12-05 13:07 | USCV_ITS ---
Adrien Brock Age: 47 Gender: F : 1975 Exam Date: 12/05/2022 13:18 Ordering Phys: Danial Glez MD ([email or web address]) Technologist: Renard Izaguirre Exam Location: [facility] [place] Indication: CP Rhythm: Sinus Patient History: HTN/DIABETIC Cardiac Medications: Beta Juanita/ARB Medications in past 24 hours: none Contrast: Stress Results Protocol: Yared Total dose(mL): Exercise Duration (min:sec): 4:30 METS: 7.0 Resting HR: 106 Resting BP: 151 / 100 Peak HR: 160 Peak BP: 217 / 117 Max Predicted HR: 171 94 % Max Predicted HR Target HR: 145 Double Product: [id number] Stress Summary: SOB that resolved during recovery BP Response: normal Reason for Termination: target hr reached Cardiac Symptoms: none ECG Analysis Resting ECG: Interpreted separately Stress ECG: Interpreted separately. Arrhythmia: See other report. MEASUREMENTS (Male/Female) Normal Values FINDINGS Resting echocardiogram revealed normal chamber sizes and normal wall motion. With stress there are no wall motion disturbances to suggest ischemia. CONCLUSIONS Stress echocardiogram negative for ischemia or infarction. Dr. Danial Glez MD (Electronically Signed) Final Date: 07 December 2022 14:53 S
[2022-12-05 14:28] VITALS: BP 142/92; PULSE 92
== END 2022-12-05 12:21 | disposition home or self-care (01) ==
LOC: CDL 12:21
PROVIDERS: PCP Physician Assistant; Visit Provider Internal Medicine Cardiovascular Disease
DX: E11.9 Type 2 diabetes mellitus without complications (principal); I10 Essential (primary) hypertension; R07.9 Chest pain, unspecified
CPT/HCPCS: 93017; 93350